=== PATIENT | male | born 1985 | race Caucasian/White ===

== ENCOUNTER 2017-01-27 11:38 | Emergency (ER) | payer OTHER ==
[~2017-01-27] VITALS: Ht 185.4 cm; Wt 153.2 kg
[~2017-01-27 11:38] MED LIST: ESOM40CA41 PO; GUAI118L13 PO; LIT300 PO; LORA1TAB PO; PREG150C PO; PROM25TA14 PO; SUMA6KIT2 SQ
[2017-01-27 11:41] VITALS: BP 143/84; PULSE 77; RESP 18; O2SAT 99
--- NOTE | 2017-01-27 12:08 | ED.REPORT ---
HPI-General Illness Date of Service Jan 27, 2017 ED Provider: Zach Moseley MD The patient is a 31 year old male with history of fibromyalgia, who presents to the emergency department complaining of numbness and pain in his left foot and leg that he first noticed 2 days ago. Last night he also noticed swelling from his left knee down to his foot. The patient states he came to the ED because he is concerned that he has a DVT. The patient also states he has nerve problems and this may just be related to that. He denies chest pain, shortness of breath , cough, fever or chills. He reports that he has been extensively worked up for this problem in the past with nerve conduction studies as well as "multiple blood tests" and other studies. Nursing Notes Stated Complaint: POSS DVT Chief Complaint: General Complaint Nursing Notes Reviewed: Yes Allergies: Coded Allergies: Penicillins (Verified Allergy, Severe, Anaphylaxis, 01/27/17) sulfamethoxazole (Verified Allergy, Severe, Anaphylaxis, 01/27/17) trimethoprim (Verified Allergy, Severe, Anaphylaxis, 01/27/17) carbamazepine (Unverified Allergy, Unknown, 01/27/17) per h&p prochlorperazine (Unverified Allergy, Unknown, 01/27/17) per h&p gabapentin (Verified Adverse Reaction, Severe, suicidal, 01/27/17) ketorolac (Verified Adverse Reaction, Severe, 01/27/17) agitation diphenhydramine (Verified Adverse Reaction, Unknown, 01/27/17) agitation per h&p Scheduled Esomeprazole Magnesium (Nexium) 40 Mg Capsule.dr 40 MG PO DAILY Guaifenesin/Codeine Phosphate (Cheratussin AC Syrup) 118 Ml Liquid 5 ML PO Q4H Lamoni Carbonate (Lamoni Carbonate) 300 Mg Cap 300 MG PO BID Pregabalin (Lyrica) 150 Mg Capsule 150 MG PO BID Scheduled PRN Lorazepam (Lorazepam) 1 Mg Tablet 1 MG PO HS PRN PRN For Insomnia Promethazine (Promethazine) 25 Mg Tablet 25 MG PO HS PRN PRN For Anxiety Miscellaneous Medications Sumatriptan Succinate (Sumatriptan Succinate) 6 Mg/0.5 Ml Cartridge 6 MG SQ General Time Seen by MD: 12:07 Chief Complaint Other (numbness and pain to left leg) Hx Obtained From: Patient Arrived By: Walk-in Sudden in Onset?: Yes Onset Occurred: 2 days ago Symptom Duration: Since onset Location: : Foot left: Leg left Quality: Painful (and numb) Severity: Current: Moderate Severity: Maximum: Moderate Recent Healthcare: No recent doctor visit, No recent hospitalization Similar Sx Previous: No Past Medical History Past Medical History PTSD Bipolar Fibromyalgia GERD Past Surgical History Back surgery - lumbar spine fusion Dyer teeth removal Reports: Tonsillectomy Family History Noncontributory Smoking History Current Every Day Smoker, Heavy Tobacco Smoker Social History Alcohol Use: Denies alcohol use Drug Use: Denies drug use Other Social History: Local resident Occupation lives with boyfriend, works at [email or web address] Ambulatory Status Independent Review of Systems Full Review of Systems Constitutional: Denies: Chills, Fever Respiratory: Denies: Non-productive cough, Shortness of breath Cardiovascular: Denies: Chest pain Musculoskeletal: Reports: Extremity pain, Extremity swelling Neurologic: Reports: Numbness Complete sys rev & neg: except as marked. Physical Exam Vital Signs Vital Signs Date Time Temp Pulse Resp B/P Pulse Ox O2 Delivery O2 Flow Rate FiO2 01/27/17 13:29 67 16 131/78 97 Room Air 01/27/17 11:41 36.0 77 18 143/84 99 Room Air Initial VS: Reviewed Head / Eyes: Atraumatic, Normocephalic, PERRL ENT: Mucous membranes moist, Conjunctiva normal, No scleral icterus Neck: Supple, Non-tender, Full range of motion Respiratory: Breath sounds normal, Clear to auscultation, No respiratory distress Cardiovascular: Regular rate & rhythm, Heart sounds normal, Intact distal pulses Abdomen / GI: Soft, Non-tender, No guarding, No rebound, No distention Extremities: Vascular intact, Neuro intact Skin: Warm, Dry, No cyanosis Neurologic: Alert, Oriented, Nonfocal Psychiatric: Mood/affect normal, Behavior normal, Normal thought content General/Constitutional: Awake, Alert, Cooperative Lower Extremity / Pelvis / MS: Atraumatic, Non-tender, No deformity, Neurologic intact, Vascular intact Good pulses. Sensation intact. Trace lower extremity edema of the bilateral lower extremities. Interpretation & Diagnostics Left lower extremity US shows no DVT Re-Eval/Medical Decision Med Decision/Clinical Course The patient is a 31 year old male with history of fibromyalgia, who presents to the emergency department complaining of numbness and pain in his left foot and leg that he first noticed 2 days ago. Last night he also noticed swelling from his left knee down to his foot. The patient states he came to the ED because he is concerned that he has a DVT. The patient also states he has nerve problems and this may just be related to that. He denies chest pain, shortness of breath , cough, fever or chills. He reports that he has been extensively worked up for this problem in the past with nerve conduction studies as well as "multiple blood tests" and other studies. Here in the emergency department the patient is afebrile stable vital signs and no apparent distress. I see no significant swelling of the affected leg and he is neurovascularly intact distally with good cap refill to the toes, good DP and PT pulses and normal sensation. Left lower extremity US ordered from triage shows no DVT At this time the patient is a 41 extensively been worked up for his lower extremity complaints. These are chronic in nature. I feel that there is little that I will additionally add diagnostically. The patient states that he is here primarily just to have an ultrasound to rule out DVT and that he would like to go home. I advised him to follow up with this issue further with his primary care doctor. Prior to discharge follow-up and return precautions were reviewed in detail with the patient who verbalized understanding and agreement with the plan. The patient was discharged in stable condition. Source of Hx: Old records Time of Eval: 13:17 Re-Evaluation/Progress Note: Discussed US results, diagnosis, and plan for discharge. All questions were addressed. Counseled Regarding: Diagnosis, Need for follow-up, When/why to return to ED Discharge & Departure Primary Impression: Left leg swelling Additional Impression: Numbness and tingling of left leg Disposition: Home Discharge Condition All VS Reviewed: Yes Condition: Stable Additional Instructions: Thank you for seeking care at the emergency room. Our primary goal today in the ED was to evaluate you for any life-threatening conditions. Your evaluation was reassuring. There is no evidence of a DVT. You should follow-up with your primary doctor in the next week. You should return to the ED immediately if you develop increased pain or swelling, fevers, vomiting, cough, shortness of breath, chest pain, lightheadedness, weakness or any other concerning signs or symptoms. Thank you for letting us partake in your care today. Referrals: Deanna Perez DO (PCP) Katrina Attestation Portions of this note were transcribed by Yoselin Hernandez. I, Dr. Moseley personally performed the history, physical exam and medical decision-making; I reviewed and confirmed the accuracy of the information in the transcribed note. Signed by: Katrina Lerner, 01/27/2017 at 1345. copies to: Deanna Perez Beck O MD Jan 27, 2017 12:08 Yoselin Hernandez Jan 27, 2017 12:45
[2017-01-27 13:29] VITALS: BP 131/78; PULSE 67; RESP 16; O2SAT 97
--- NOTE | 2017-01-27 16:27 | DRSVH ---
PROCEDURE: US VEINOUS LEG DUPLEX UNILATERAL, LEFT INDICATIONS: r/o DVT TECHNIQUE: Real-time imaging, as well as color and pulse Doppler interrogation, were performed of the lower extr emity deep veins from the inguinal ligament to the popliteal fossa. COMPARISON: None. FINDINGS: The deep veins are normally compressible, and free of intraluminal thrombus. Color and pu lse Doppler demonstrate normal phasic intraluminal flow. There is normal augmentation response to di stal compression maneuver. IMPRESSION: No deep venous thrombosis identified within the left lower extremity. Dictated by: Janes Farmer [facility] Interpreted: Juan Ramon Oliveira MD on 01/27/2017 at 13:55 Approved by: Juan Ramon Oliveira M.D. on 01/27/2017 at 16:25
== END 2017-01-27 13:25 | disposition home or self-care (01) ==
LOC: SED 11:38
DX: M79.89 Other specified soft tissue disorders (principal); R20.0 Anesthesia of skin; F43.10 Post-traumatic stress disorder, unspecified; K21.9 Gastro-esophageal reflux disease without esophagitis; F17.200 Nicotine dependence, unspecified, uncomplicated; Z79.899 Other long term (current) drug therapy; Z88.0 Allergy status to penicillin; Z88.2 Allergy status to sulfonamides; Z88.8 Allergy status to other drugs, medicaments and biological substances